=== PATIENT | female | born 1990 | race American Indian/Alaskan Native ===

== ENCOUNTER 2020-11-10 15:43 | Emergency (ER) | payer SELFPAY ==
[2020-11-10 18:31] VITALS: BP 172/112
--- NOTE | 2020-11-10 18:46 | Emergency Department Report ---
ED Female HPI - General Chief complaint: Urogenital-Female Stated complaint: HAVING COMPLICATIONS Time Seen by Provider: 11/10/20 18:41 Source: patient Mode of arrival: Ambulatory Limitations: No Limitations - History of Present Illness Initial comments: Patient is a [age]-year-old female presents emergency room with complaints of vaginal lesions that began a week ago. She states that she had unprotected intercourse. She states her partner had some bumps present but she states that she was told they were hair bumps from shaving. She states that she has had some tingling and burning sensation in that region. She denies any fever, nausea, vomiting, diarrhea, dysuria, urinary frequency, vaginal discharge, vaginal bleeding, back pain, abdominal pain. Past medical history of hypertension. No allergies medications. - Related Data Home Medications Medication Instructions Recorded Confirmed Last Taken lisinopriL [Lisinopril] 20 mg PO QDAY 11/10/20 11/10/20 Unknown Previous Rx's Medication Instructions Recorded Last Taken Type Acyclovir 400 mg PO TID 10 Days #30 tablet 11/10/20 Unknown Rx Lidocaine [Lidocaine GEL] 1 applicatio TP BID PRN #30 11/10/20 Unknown Rx gel..gram. Allergies Allergy/AdvReac Type Severity Reaction Status Date / Time No Known Allergies Allergy Verified 11/10/20 18:31 ED Review of Systems ROS: Stated complaint: HAVING COMPLICATIONS Other details as noted in HPI Comment: All other systems reviewed and negative ED Past Medical Hx - Past Medical History Hx Hypertension: Yes - Social History Smoking Status: Current Every Day Smoker Substance Use Type: None - Medications Home Medications: Home Medications Medication Instructions Recorded Confirmed Last Taken Type Acyclovir 400 mg PO TID 10 Days #30 tablet 11/10/20 Unknown Rx Lidocaine [Lidocaine GEL] 1 applicatio TP BID PRN #30 11/10/20 Unknown Rx gel..gram. lisinopriL [Lisinopril] 20 mg PO QDAY 11/10/20 11/10/20 Unknown History ED Physical Exam - General Limitations: No Limitations General appearance: alert, in no apparent distress - Head Head exam: Present: atraumatic, normocephalic - Eye Eye exam: Present: normal appearance - ENT ENT exam: Present: mucous membranes moist - Respiratory Respiratory exam: Absent: respiratory distress, accessory muscle use - External exam: Present: lesions (multiple clear vesicles present to the left inner labia, no obvious discharge visualized, no significant edema, creche attendant: Gloria Allen PA-C) - Neurological Exam Neurological exam: Present: alert, oriented X3 - Psychiatric Psychiatric exam: Present: normal affect, normal mood - Skin Skin exam: Present: warm, dry, intact ED Course Vital Signs 11/10/20 18:29 Temperature 98.5 F Pulse Rate 73 Respiratory 18 Rate Blood Pressure 172/112 O2 Sat by Pulse 100 Oximetry ED Medical Decision Making - Medical Decision Making Patient is a [age]-year-old female presents emergency room with complaints of vaginal lesions that began a week ago. She states that she had unprotected intercourse. She states her partner had some bumps present but she states that she was told they were hair bumps from shaving. She states that she has had some tingling and burning sensation in that region. She denies any fever, nausea, vomiting, diarrhea, dysuria, urinary frequency, vaginal discharge, vaginal bleeding, back pain, abdominal pain. Past medical history of hypertension. No allergies medications. on exam: multiple clear vesicles present to the left inner labia, no obvious discharge visualized, no significant edema, creche attendant: Gloria Allen PA-C. Examination appears consistent with genital herpes. Patient given prescription for acyclovir and lidocaine gel. Advised patient Please use medication as prescribed. Please have a new partner tested and treated as well. Avoid sexual intercourse. This is contagious and lifelong. Please follow-up with the clinic or health department in order to have a full STD panel. Return to emergency room for new or worsening symptoms Please follow-up with your primary care doctor regarding the elevation in your blood pressure during today's visit. Eat a low-sodium diet. Increase your water intake. Incorporate 36 minutes of daily exercise. Return to emergency room for any worsening symptoms. Critical care attestation.: If time is entered above; I have spent that time in minutes in the direct care of this critically ill patient, excluding procedure time. ED Disposition Clinical Impression: Herpes simplex virus (HSV) infection of vagina, Elevated blood pressure reading Disposition: TO HOME OR SELFCARE Is pt being admited?: No Does the pt Need Aspirin: No Condition: Stable Instructions: Genital Herpes, Managing Your Hypertension Additional Instructions: Please use medication as prescribed. Please have a new partner tested and treated as well. Avoid sexual intercourse. This is contagious and lifelong. Please follow-up with the clinic or health department in order to have a full STD panel. Return to emergency room for new or worsening symptoms Please follow-up with your primary care doctor regarding the elevation in your blood pressure during today's visit. Eat a low-sodium diet. Increase your water intake. Incorporate 36 minutes of daily exercise. Return to emergency room for any worsening symptoms. walk in clinic: [facility] in [place], [place] Address: [address] [place] [address], [place] [address] Prescriptions: Acyclovir 400 mg PO TID 10 Days #30 tablet Lidocaine [Lidocaine GEL] 1 applicatio TP BID PRN #30 gel..gram. PRN Reason: pain Referrals: [facility] [Provider Group] - 2-3 Days [facility] [Outside] - 2-3 Days Time of Disposition: 18:44 Print Language: QATARI
--- NOTE | 2020-11-10 19:18 | Event Note ---
ED Screening Note Date of service: 11/10/20 Time: 18:33 ED Screening Note: 30-year-old -[place] female presents to the emergency room for rash and breakout to her vaginal area for 1 week. She states that her boyfriend has same type of bumps. She denies any vaginal discharge no vaginal bleeding. She does admit to have a hypertension but has been out of her meds and just needs to pick them up. Patient denies any fever but states that she has hot and cold. This initial assessment/diagnostic orders/clinical plan/treatment(s) is/are subject to change based on patients health status, clinical progression and re- assessment by fellow clinical providers in the ED. Further treatment and workup at subsequent clinical providers discretion. Patient/guardian urged not to elope from the ED as their condition may be serious if not clinically assessed and managed. Initial orders include:
== END 2020-11-10 19:00 | disposition home or self-care (01) ==
LOC: ED 15:43
DX: B00.89 Other herpesviral infection (principal); R03.0 Elevated blood-pressure reading, without diagnosis of hypertension; I10 Essential (primary) hypertension; F17.200 Nicotine dependence, unspecified, uncomplicated; Z79.899 Other long term (current) drug therapy
CPT/HCPCS: 99281